=== PATIENT | female | born 1970 | race Caucasian/White ===

== ENCOUNTER 2018-10-12 10:51 | Emergency (ER) | payer BC ==
[2018-10-12 11:06] VITALS: BP 140/86
--- NOTE | 2018-10-12 11:21 | ED ---
Lower Extremity - HPI Summary HPI Summary: Patient is a 47-year-old female who presents to the emergency department with a right foot and right ankle pain since last Friday. Patient reports that she slipped and fell and since the pain has been worsening. The patient is unable to bear weight on the right foot. Denies any knee pain denies any hip pain. Patient has no other injuries. She reports that the pain is 2 out of 10 when she doesn't bear weight and that about 8 out of 10 when she bears weight. She also reports that ibuprofen helps for the pain. - History of Current Complaint Chief Complaint: UCLowerExtremity Stated Complaint: RIGHT FOOT COMPLAINT Time Seen by Provider: 10/12/18 11:09 Pain Intensity: 3 - Allergies/Home Medications Allergies/Adverse Reactions: Allergies Allergy/AdvReac Type Severity Reaction Status Date / Time adhesive Allergy Rash Verified 10/12/18 11:06 environmental Allergy Hay Fever Uncoded 10/12/18 11:06 Home Medications: Home Medications Ibuprofen 800 mg PO ONCE PRN 10/12/18 [History Confirmed 10/12/18] PMH/Surg Hx/FS Hx/Imm Hx Previously Healthy: Yes Endocrine/Hematology History: Denies: Hx Diabetes Cardiovascular History: Denies: Hx Hypertension Respiratory History: Reports: Hx Asthma, Hx Seasonal Allergies GI History: Reports: Hx Gastroesophageal Reflux Disease - WELL CONTROLLED History: Denies: Hx Renal Disease Sensory History: Reports: Hx Contacts or Glasses - GLASSES Denies: Hx Hearing Aid Opthamlomology History: Reports: Hx Contacts or Glasses - GLASSES Psychiatric History: Reports: Hx Attention Deficit Hyperactivity Disorder, Hx Depression - Cancer History Cancer Type, Location and Year: Hodgkins Lymphoma January 2016 - Surgical History Surgery Procedure, Year, and Place: VAGINAL HYSTERECTOMY. BILAT REDUCTION MAMMOPLASTY 2007 [facility] [place]. TUBAL LIGATION 2006 [facility] [place] Hx Anesthesia Reactions: No Infectious Disease History: Yes Infectious Disease History: Reports: Hx of Known/Suspected MRSA - hx of Denies: Traveled Outside the US in Last 30 Days - Family History Known Family History: Positive: Unknown - Social History Alcohol Use: Occasionally Hx Substance Use: No Substance Use Type: Reports: None Hx Tobacco Use: No Smoking Status (MU): Never Smoked Tobacco Review of Systems Constitutional: Negative Positive: Fever Eyes: Negative ENT: Negative Cardiovascular: Negative Respiratory: Negative Gastrointestinal: Negative Genitourinary: Negative Musculoskeletal: Other - right foot and ankle pain Skin: Negative Positive: Bruising Neurological: Negative Psychological: Normal All Other Systems Reviewed And Are Negative: No Physical Exam - Summary Physical Exam Summary: Gen.: Patient is a well developed and nourished female in in no acute distress. Patient is sitting comfortably on the stretcher. Head: Normacephalic and atraumatic Eyes: PERRLA, EOMI x2. Ears: Right ear canal and TM WNL and Left ear canal and TM WNL Nose and mouth: WNL Neck: Supple, Positive bilateral submandibular and anterior cervical lymphadenopathy. No JVD Lungs: CTA B/L CVS: S1 & S2 present. No murmurs appreciated. ABDOMEN: Soft NT w/ positive BS. EXT: Right Foot swelling and brussing NEURO: A+O X 3. Triage Information Reviewed: Yes Vital Signs On Initial Exam: Initial Vitals Temp Pulse Resp BP Pulse Ox 98 F 81 18 140/86 98 10/12/18 11:03 10/12/18 11:03 10/12/18 11:03 10/12/18 11:03 10/12/18 11:03 Vital Signs Reviewed: Yes Diagnostics - Vital Signs Vital Signs Temp Pulse Resp BP Pulse Ox 10/12/18 11:03 98 F 81 18 140/86 98 - Laboratory Lab Statement: Any lab studies that have been ordered have been reviewed, and results considered in the medical decision making process. Lower Extremity Course/Dx - Course Assessment/Plan: Ankle x-ray impression: Soft tissue swelling without fracture. Foot x-ray impression: No acute fracture. The patient was placed in a compt boot and the patient is using crutches. She was recommended if the pain increases or worsens or do not improve, of the swelling worsens the patient should return to the urgent care or go to the emergency room for further workup and management. The patient was recommended to use ibuprofen for pain. She was also recommended if the symptoms worsen follow-up with an orthopedic doctor. - Diagnoses Differential Diagnosis/HQI/PQRI: Positive: Bursitis, Contusion, Fracture (Closed ), Sprain, Strain Provider Diagnoses: Ankle sprain Discharge - Sign-Out/Discharge Documenting (check all that apply): Patient Departure All imaging exams completed and their final reports reviewed: Yes - Discharge Plan Condition: Good Disposition: HOME Patient Education Materials: Ankle Sprain (ED) Referrals: Misti Acosta MD [Primary Care Provider] - Additional Instructions: Take medications as instructed and adhere to plan Take Acetaminophen or ibuprofen for pain Increase your fluid intake Return to the or go to the emergency department if symptoms worsen Follow-up with primary care physician in next 2-3 days - Billing Disposition and Condition Condition: GOOD Disposition: Home
== END 2018-10-12 12:44 | disposition home or self-care (01) ==
LOC: UCEAST 10:51
DX: S93.401A Sprain of unspecified ligament of right ankle, initial encounter (principal); W01.0XXA Fall on same level from slipping, tripping and stumbling without subsequent striking against object, initial encounter; Y92.9 Unspecified place or not applicable
CPT/HCPCS: 99212; G0463

== ENCOUNTER 2019-07-05 20:33 | Emergency (ER) | payer BC ==
--- OUTSIDE RECORDS SUMMARY | 2019-07-05 20:44 | XMS REPORT | Continuity of Care Document ---
:1970 External Reference #:[id number] Author Name Yuliana Boo NP (transmitted by agent of provider Jessica Navarro) Address [address] [facility], [address] [place] [id number] Care Team Providers Name Role Phone [facility] - Clinic/Center Care Team Information Straightener And Aligner Cierra Damian DPM - Hvac Journeyman Care Team Information Straightener And Aligner [phone] Francisco Jimenes MD - Infectious Care Team Information Straightener And Aligner [phone] Disease Merle Solis NP - Women's Health Care Team Information Straightener And Aligner Problems Active Problems Provider Date Hodgkin's disease of extranodal AND/OR Power Galdamez, Onset: 01/26/2016 solid organ site Мария,FACP Attention deficit hyperactivity Nadege Minor PA Onset: 04/30/2010 disorder, predominantly inattentive type Non-toxic uninodular goiter Power Galdamez, Onset: 07/01/2012 Мария,NEVINP Family history of breast cancer Power Galdamez, Onset: 07/01/2012 Мария,NEVINP Pure hypercholesterolemia Power Galdamez, Onset: 05/06/2013 Мария,FACP Vitamin D deficiency Tari Arias N.P. Onset: 02/22/2014 Intrinsic asthma without status Xuan Chaudhry MD Onset: 10/03/2014 asthmaticus Allergic rhinitis Xuan Chaudhry MD Onset: 10/03/2014 Obesity Xuan Chaudhry MD Onset: 10/03/2014 Gastroesophageal reflux disease Xuan Chaudhry MD Onset: 10/03/2014 Dyssomnia Xuan Chaudhry MD Onset: 10/03/2014 Impaired fasting glycaemia Power Galdamez, Onset: 04/30/2017 Мария,FACP Essential hypertension Power Galdamez, Onset: 08/11/2017 Мария,FACP Closed fracture of calcaneus Pranay Dupree MD Onset: 12/15/2018 Social History Type Date Description Comments Sex Unknown Tobacco Use Start: Unknown End: Former Cigarette Smoker 1 pack per month Unknown for 10 years ETOH Use 11/17/2017 Occasionally consumes alcohol Recreational Drug Use Sporadically uses Marijuana Tobacco Use Start: Unknown Patient has never smoked Smoking Status Reviewed: 06/17/19 Patient has never smoked Exercise Type/Frequency Exercises regularly Allergies, Adverse Reactions, Alerts Description No Known Drug Allergies Medications Active Medications SIG Qnty Indications Ordering Date Provider Omeprazole once a day 90caps Misti Acosta MD 04/28/[address] Raymundo one by mouth twice 60tabs Emily Toure 03/17/2019 0.25mg Tablets daily as needed MCrystal for anxiety Clotrimazole/Betamet uses as needed 30ml Misti Acosta MD 02/10/2019 hasone Dipropionate now---use sparingly on 1-0.05% Lotion affected area 2x daily for 1-2 weeks Advair Diskus 1 inhalation twice 60units Power Hahn 06/29/2015 daily Мария Galdamez,FACP 100-50mcg/Dose Aerosol Ventolin HFA 2 puffs by mouth 1units Unknown four times a day 108(90Base) mcg/Act as needed Aerosol Estradiol Apply 1 Patch Unknown Twice A Week 0.025mg/24HR Patches Biweek Immunizations CPT Code Status Date Vaccine Lot # [id number] Given 11/17/2017 Pneumococcal Conjugate Vaccine 13 Valent For [id number] Intramuscular Use 93663 Given 08/13/2017 Influenza Virus Vaccine, Quadrivalent, Split, Preservative Free 51141 Given 06/29/2015 Influenza Virus Vaccine, Quadrivalent, Split, [id number] Preservative Free 20990 Given 06/15/2014 Flu Vaccine Split Virus Preservative Free For Indiv 3Yr Older [id number] Given 07/01/2013 Fluvirin Im 3Yrs And Older 16677 Given 05/06/2013 Pneumonia Vaccine [id number] Q2038 Given 07/01/2012 Fluzone Vaccine [id number] 16831 Given 02/20/2012 Measles Mumps And Rubella MMR [id number] 07892 Given 06/21/2011 Influenza Virus 3Yrs & Over [id number] 34050 Given 08/31/2010 Influenza Virus 3Yrs & Over 15738 Given 03/04/2006 Tdap - Tetanus/Diptheria/Acellular Pertussis Vital Signs Date Vital Result Comment 06/17/2019 2:26pm Height 60.50 inches 5'0.50" Weight 169.25 lb Heart Rate 82 /min BP Systolic Sitting 138 mmHg Rue reg cuff BP Diastolic Sitting 94 mmHg Rue reg cuff Respiratory Rate 16 /min O2 % BldC Oximetry 97 % On Ra BMI (Body Mass Index) 32.5 kg/m2 05/06/2019 1:26pm Height 60.50 inches 5'0.50" Weight 167.38 lb Heart Rate 86 /min BP Systolic Sitting 156 mmHg Lue reg cuff BP Diastolic Sitting 98 mmHg Lue reg cuff Respiratory Rate 18 /min O2 % BldC Oximetry 97 % On Ra BMI (Body Mass Index) 32.1 kg/m2 Results Test Date Facility Test Result H/L Range Note Comp Metabolic 06/02/2019 [facility] Sodium 140 mmol/L Normal 135-145 Panel [address] [place] [address] [phone] Potassium 4.1 mmol/L Normal 3.5-5.0 Chloride 106 mmol/L Normal 101-111 Co2 Carbon Dioxide 23 mmol/L Normal 22-32 Anion Gap 11 mmol/L Normal 2-11 Glucose 109 mg/dL High 70-100 Blood Urea Nitrogen 15 mg/dL Normal 6-24 Creatinine 0.83 mg/dL Normal 0.51-0.95 BUN/Creatinine Ratio 18.1 Normal 8-20 Calcium 9.5 mg/dL Normal 8.6-10.3 Total Protein 7.8 g/dL Normal 6.4-8.9 Albumin 4.7 g/dL Normal 3.2-5.2 Globulin 3.1 g/dL Normal 2-4 Albumin/Globulin Ratio 1.5 Normal 1-3 Total Bilirubin 0.60 mg/dL Normal 0.2-1.0 Alkaline Phosphatase 59 U/L Normal 34-104 Alt 28 U/L Normal 7-52 Ast 26 U/L Normal 13-39 Egfr Non- 73.7 >60 Egfr 89.2 >60 1 CBC Auto 06/02/2019 [facility] White Blood 6.5 10^3/uL Normal 3.5-10.[address] [place] [address] [phone] Red Blood Count 4.87 10^6/uL Normal 3.70-4.87 Hemoglobin 14.6 g/dL Normal 12.0-16.0 Hematocrit 44 % Normal 35-47 Mean Corpuscular Volume 90 fL Normal 80-97 Mean Corpuscular Hemoglobin 30 pg Normal 27-31 Mean Corpuscular HGB Conc 34 g/dL Normal 31-36 Red Cell Distribution Width 15 % Normal 10-15 Platelet Count 263 10^3/uL Normal 150-450 Mean Platelet Volume 9.6 fL Normal 7.4-10.4 Abs Neutrophils 4.1 10^3/uL Normal 1.5-7.7 Abs Lymphocytes 1.9 10^3/uL Normal 1.0-4.8 Abs Monocytes 0.4 10^3/uL Normal 0-0.8 Abs Eosinophils 0.2 10^3/uL Normal 0-0.6 Abs Basophils 0.0 10^3/uL Normal 0-0.2 Abs Nucleated RBC 0.0 10^3/uL Granulocyte % 62.0 % Lymphocyte % 28.9 % Monocyte % 5.8 % Eosinophil % 2.6 % Basophil % 0.7 % Nucleated Red Blood Cells % 0.0 Laboratory test 06/02/2019 [facility] Erythrocyte Sed 16 mm/Hr Normal 0-[address] [place] [address] [phone] Hemoglobin A1c (Glyco HGB) 5.9 % High 4.0-5.6 2 Laboratory test finding 12/24/2018 [facility] Estradiol <40 pg/ mL [address] [place] [address] [phone] FSH (Follicle Stim Hormone) 85.8 mIU/mL 4 LH (Lutenizing Hormone) 28.6 mIU/mL 5 Estradiol, Confirmatory, S <10 pg/mL 6 1 Because ethnic data is not always readily available, this report includes an eGFR for both -Americans and non- Americans. The National Kidney Disease Education Program (NKDEP) does not endorse the use of the MDRD equation for patients that are not between the ages of 18 and 70, are , have extremes of body size, muscle mass, or nutritional status, or are non- or non-. According to the National Kidney Foundation, irrespective of diagnosis, the stage of the disease is based on the level of kidney function: Stage Description GFR(mL/min/1.73 m(2)) 1 Kidney damage with normal or decreased GFR 90 2 Kidney damage with mild decrease in GFR 60-89 3 Moderate decrease in GFR 30-59 4 Severe decrease in GFR 15-29 5 Kidney failure <15 (or dialysis) 2 Therapeutic target for the treatment of diabetes mellitus patients is <7% HBA1C, and in selective patients <6.0%. Please refer to [place] Diabetes Association diabetic care guidelines for further information. 3 Estradiols <40 pg/mL are sent to a reference lab for low range testing. Postmenopausal Females < 20 Ovulating females: by day in cycle relative to LH Peak Follicular phase - 12 10-50 - 4 60-200 Mid-cycle - 1 120-375 Luteal phase + 2 50-155 + 6 60-260 + 12 15-115 4 Normally menstruating females - Follicular phase 3 - 9 - Mid-cycle peak 4 - 23 - Luteal phase 1 - 6 Postmenopausal females 16 - 114 5 Normally menstruating females - Follicular Phase 1 - 18 - Mid-Cycle Peak 24 - 105 - Luteal Phase 0.6 - 20 Postmenopausal females 15 - 62 6 REFERENCE VALUE Premenopausal: 15-350 (E2 levels vary widely through the menstrual cycle.) Postmenopausal: <10 ADDITIONAL INFORMATION This test was developed and its performance characteristics determined by [facility] in a manner consistent with CLIA requirements. This test has not been cleared or approved by the U.S. Food and Drug Administration. Test Performed by: [facility] [address] [facility], [place] [address] Procedures Date Code Description Status 04/27/2019 17834 Polysomnography Sleep Staging 4+ Parameters Completed 02/16/2019 42970 Sleep Study Unattended,HRT Rate,Oxygen Sat,Resp Completed Effort/Airflow 01/19/2018 [id number] Mammogram Completed 01/10/2017 [id number] Mammogram Completed 09/13/2014 [id number] Mammogram Completed 08/24/2013 [id number] Mammogram Completed 05/06/2012 [id number] Mammogram Completed 09/25/2010 [id number] Mammogram Completed 02/22/2009 [id number] Mammogram Completed 11/27/2007 [id number] Mammogram Completed Medical Devices Description No Information Available Encounters Type Date Location Provider Dx Diagnosis Office Visit 06/17/2019 [facility]uliana G47.33 Obstructive sleep 2:30p [facility] Boo apnea (adult) González (pediatric) R53.83 Other fatigue Office Visit 05/06/2019 [facility] Yuliana G47.33 Obstructive sleep 1:30p [facility] Boo apnea (adult) González (pediatric) R53.83 Other fatigue Office Visit 02/09/2019 3:00p [facility] Xuan Chaudhry R06.83 [facility] R53.83 Other fatigue Assessments Date Code Description Provider 06/17/2019 G47.33 Obstructive sleep apnea (adult) (pediatric) Yuliana Boo NP 06/17/2019 R53.83 Other fatigue Yuliana Boo NP 05/06/2019 G47.33 Obstructive sleep apnea (adult) (pediatric) Yuliana Boo NP 05/06/2019 R53.83 Other fatigue Yuliana Boo NP 04/27/2019 G47.33 Obstructive sleep apnea (adult) (pediatric) Xuan Chaudhry MD 02/16/2019 R06.83 Snoring Xuan Chaudhry MD 02/09/2019 R06.83 Snoring Xuan Chaudhry MD 02/09/2019 R53.83 Other fatigue Xuan Chaudhry MD Plan of Treatment 06/17/2019 - Yuliana Boo NPG47.33 Obstructive sleep apnea (adult) ( pediatric)Follow up:1 yearRecommendations:Keep up the good work with your CPAP! If you have difficulty with your equipment, or need to replace your mask or hoses, please contact your homecare agency, [facility] . If you have any further questions, please call the [facility] at [phone] If you have anysleepiness while driving you MUST avoid operating a vehicle or machinery. If you feel tired while driving ear pull machine operator and take a nap or switch drivers. If you know you are sleepy and need to go somewhere, arrange for a ride or use public transportation. It is very important to not risk your safety or the safety of others.R53.83 Other fatigue Functional Status Description No Information Available Mental Status Description No Information Available Referrals Description No Information Available
--- NOTE | 2019-07-05 21:49 | ED ---
Abdominal Pain/Female - HPI Summary HPI Summary: Patient complains of lower mid and left abdominal pain 1 week. Pain described as intermittent, progressive, constant today. New-onset pain. Associated nausea and fatigue. Denies fever, cough, sore throat, CP, V/D, abdominal pain, change in urine, change in BM. Medical history is GERD. Abdominal surgical history is partial hysterectomy. - History of Current Complaint Chief Complaint: EDAbdPain Stated Complaint: ABD PAIN PER PT Time Seen by Provider: 07/05/19 21:36 Hx Obtained From: Patient Onset/Duration: Gradual Onset, Lasting Days Timing: Intermittent Episode Lasting Severity Initially: Moderate Severity Currently: Moderate Pain Intensity: 7 Pain Scale Used: 0-10 Numeric Location: Discrete At: LLQ, Suprapubic Radiates: No Character: Sharp, Cramping Aggravating Factor(s): Nothing Alleviating Factor(s): Nothing Associated Signs and Symptoms: Positive: Nausea Allergies/Adverse Reactions: Allergies Allergy/AdvReac Type Severity Reaction Status Date / Time adhesive Allergy Rash Verified 12/01/18 15:34 environmental Allergy Hay Fever Uncoded 12/01/18 15:34 PMH/Surg Hx/FS Hx/Imm Hx Endocrine/Hematology History: Denies: Hx Diabetes Cardiovascular History: Denies: Hx Hypertension, Hx Pacemaker/ICD Respiratory History: Reports: Hx Asthma, Hx Seasonal Allergies GI History: Reports: Hx Gastroesophageal Reflux Disease - WELL CONTROLLED History: Denies: Hx Renal Disease Sensory History: Reports: Hx Contacts or Glasses - GLASSES Denies: Hx Hearing Aid Opthamlomology History: Reports: Hx Contacts or Glasses - GLASSES EENT History: Denies: Hx Deafness Neurological History: Denies: Hx Dementia Psychiatric History: Reports: Hx Attention Deficit Hyperactivity Disorder, Hx Depression Denies: Hx Panic Disorder - Cancer History Cancer Type, Location and Year: Hodgkins Lymphoma January 2016 - Surgical History Surgery Procedure, Year, and Place: VAGINAL HYSTERECTOMY. B[place] [facility] [place] [facility] [place]x Anesthesia Reactions: No - Immunization History Immunizations Up to Date: Yes Infectious Disease History: No Infectious Disease History: Reports: Hx of Known/Suspected MRSA - hx of Denies: Traveled Outside the [place] in Last 30 Days - Family History Known Family History: Positive: Unknown - Social History Alcohol Use: Occasionally Hx Substance Use: No Substance Use Type: Reports: Marijuana Hx Tobacco Use: No Smoking Status (MU): Never Smoked Tobacco Review of Systems Constitutional: Negative Eyes: Negative ENT: Negative Cardiovascular: Negative Respiratory: Negative Positive: Abdominal Pain, Nausea Genitourinary: Negative Musculoskeletal: Negative Skin: Negative Neurological: Negative Psychological: Normal All Other Systems Reviewed And Are Negative: Yes Physical Exam - Summary Physical Exam Summary: Tenderness to palpation suprapubically in left lower quadrant. Abdominal exam otherwise unremarkable. Triage Information Reviewed: Yes Vital Signs On Initial Exam: Initial Vitals Temp Pulse Resp BP Pulse Ox 97.9 F 95 16 148/100 96 07/05/19 20:35 07/05/19 20:35 07/05/19 20:35 07/05/19 20:35 07/05/19 20:35 Vital Signs Reviewed: Yes Appearance: Positive: Well-Appearing Skin: Positive: Warm Head/Face: Positive: Normal Head/Face Inspection Eyes: Positive: Normal ENT: Positive: Normal ENT inspection Dental: Positive: Percussion Tenderness @ Neck: Positive: Supple Respiratory/Lung Sounds: Positive: Clear to Auscultation Cardiovascular: Positive: Normal Musculoskeletal: Positive: Normal Neurological: Positive: Normal Psychiatric: Positive: Normal AVPU Assessment: Alert - Bradley Coma Scale Best Eye Response: 4 - Spontaneous Best Motor Response: 6 - Obeys Commands Best Verbal Response: 5 - Oriented Coma Scale Total: 15 Procedures - Sedation Patient Received Moderate/Deep Sedation with Procedure: No Diagnostics - Vital Signs Vital Signs Temp Pulse Resp BP Pulse Ox 07/05/19 21:33 91 113/72 97 07/05/19 21:03 97 159/95 98 07/05/19 21:02 103 97 07/05/19 20:35 97.9 F 95 16 148/100 96 - Laboratory Result Diagrams: 07/05/19 21:49 07/05/19 21:49 Lab Statement: Any lab studies that have been ordered have been reviewed, and results considered in the medical decision making process. Abdominal Pain Fem Course/Dx - Course Course Of Treatment: Patient complains of lower mid and left abdominal pain 1 week. Pain described as intermittent, progressive, constant today. New-onset pain. Associated nausea and fatigue. Denies fever, cough, sore throat, CP, V/D , abdominal pain, change in urine, change in BM. Medical history is GERD. Abdominal surgical history is partial hysterectomy. Vital signs within normal limits. Labs unremarkable. Transvaginal ultrasound negative. CT abdomen and pelvis with IV contrast positive for diverticulitis. Possible colovesical fistula. Patient advised to return for urine symptoms. Rx for Flagyl and Cipro. Started on same here in the ED tonight. Patient refused pain control. - Diagnoses Provider Diagnoses: Diverticulitis Discharge ED - Sign-Out/Discharge Documenting (check all that apply): Patient Departure - Discharge Plan Condition: Stable Disposition: HOME Prescriptions: Ciprofloxacin HCl [Cipro] 500 mg PO BID 10 Days #20 tablet metroNIDAZOLE [Flagyl 500 MG TAB] 500 mg PO TID 10 Days #30 tab Patient Education Materials: Diverticulitis (ED), Diverticulitis Diet (ED) Referrals: Merle Solis NP [Primary Care Provider] - Additional Instructions: Tylenol 650 mg every 4 hours for pain. Bowel rest, which involves a diet of Liquids, or very soft foods like soup. Take antibiotics as directed. Return to the ED for any worsening or concerning symptoms. - Billing Disposition and Condition Condition: STABLE Disposition: Home
[2019-07-05 22:00] LABS: ABS Basophils 0.1 10^3/ul (0-0.2); ABS Eosinophils 0.3 10^3/ul (0-0.6); ABS Lymphocytes 2.9 10^3/ul (1.0-4.8); ABS Monocytes 0.8 10^3/ul (0-0.8); ABS Neutrophils 5.2 10^3/ul (1.5-7.7); Eosinophil % 2.8 %; Hematocrit 39 % (35-47); Hemoglobin 12.9 g/dL (12.0-16.0); Lymphocyte % 31.6 %; Mean Corpuscular HGB Conc 33 g/dL (31-36); Mean Corpuscular Hemoglobin 30 pg (27-31); Mean Corpuscular Volume 90 fL (80-97); Mean Platelet Volume 9.7 fL (7.4-10.4); Platelet Count 232 10^3/uL (150-450); Red Blood Count 4.36 10^6 /uL (3.70-4.87); Red Cell Distribution Width 14 % (10-15); White Blood Count 9.2 10^3/uL (3.5-10.8)
[2019-07-05 22:18] LABS: Albumin/Globulin Ratio 1.4 (1-3); BUN/Creatinine Ratio 14.1 (8-20); C Reactive Protein 92.99 mg/L (<8.01); EGFR African American 95.8 (>60); EGFR Non-African American 79.2 (>60); Globulin 2.8 g/dL (2-4); Potassium 4.2 mmol/L (3.5-5.0); Total Bilirubin 0.5 mg/dL (0.2-1.0); Total Protein 6.8 g/dL (6.4-8.9)
[2019-07-05] MEDS ORDERED: Iohexol 300* (CONTRAST) 10 ML SDV IV ONE (22:22)
[2019-07-05 22:24] LABS: HCG Pregnancy 3.05 mIU/mL
[2019-07-05 22:50] LABS: Urine Appearance Clear; Urine Bilirubin Negative (Negative); Urine Blood Negative (Negative); Urine Color Yellow; Urine Glucose Negative (Negative); Urine Ketones Trace (Negative); Urine Nitrite Negative (Negative); Urine Protein Negative (Negative); Urine Specific Gravity 1.017 (1.010-1.030); Urine Urobilinogen Negative (Negative)
[2019-07-06] MEDS ORDERED: Ciprofloxacin TAB* 500 MG PO ONE (00:51)
[2019-07-06] MEDS ORDERED: metroNIDAZOLE TAB* 250 MG PO ONE (00:51)
[2019-07-06 01:07] VITALS: BP 159/100
== END 2019-07-06 01:06 | disposition home or self-care (01) ==
LOC: ED 20:33
DX: K57.92 Diverticulitis of intestine, part unspecified, without perforation or abscess without bleeding (principal); R10.32 Left lower quadrant pain; R11.0 Nausea; K21.9 Gastro-esophageal reflux disease without esophagitis; F90.9 Attention-deficit hyperactivity disorder, unspecified type; F32.9 Major depressive disorder, single episode, unspecified; Z86.14 Personal history of Methicillin resistant Staphylococcus aureus infection
CPT/HCPCS: 36415; 74177; 76830; 80053; 81003; 83605; 83690; 84702; 85025; 86140; 99283; A9270-GY; Q9967